=== PATIENT | male | born 1965 | race Asian ===

== ENCOUNTER 2017-12-22 17:38 | Emergency (ER) | payer SELFPAY ==
[2017-12-22] MEDS ORDERED: OXYMETAZOLINE HCL 0.05% NASAL SPRAY 15 ML BOTTLE NASL ONE (18:11)
--- NOTE | 2017-12-22 18:13 | ER Document Report ---
ED Medical Screen (RME) - General Chief Complaint: Nose Bleed Stated Complaint: NOSE BLEED Time Seen by Provider: 12/22/17 18:08 Notes: 52-year-old male patient no past medical history on no medications with the right nostril nosebleed started yesterday is been intermittent and is ongoing at this time. I have greeted and performed a rapid initial assessment of this patient. A comprehensive ED assessment and evaluation of the patient, analysis of test results and completion of the medical decision making process will be conducted by additional ED providers. TRAVEL OUTSIDE OF THE [place] IN LAST 30 DAYS: No - Related Data Allergies/Adverse Reactions: No Known Allergies Allergy (Verified 12/22/17 17:41) Past Medical History - Social History Chew tobacco use (# tins/day): No Frequency of alcohol use: 3-4 times a week Drug Abuse: None - Past Medical History Cardiac Medical History: Denies: Hx Coronary Artery Disease, Hx Heart Attack, Hx Hypertension Pulmonary Medical History: Denies: Hx Asthma, Hx Bronchitis, Hx Pneumonia Neurological Medical History: Denies: Hx Cerebrovascular Accident, Hx Seizures Renal/ Medical History: Denies: Hx Peritoneal Dialysis Musculoskeltal Medical History: Denies Hx Arthritis - Immunizations Hx Diphtheria, Pertussis, Tetanus Vaccination: No Physical Exam - Vital signs Vitals: Temp Pulse Resp BP Pulse Ox 97.7 F 80 18 170/84 H 99 12/22/17 17:45 12/22/17 17:45 12/22/17 17:45 12/22/17 17:45 12/22/17 17:45 Course - Vital Signs Vital signs: Temp Pulse Resp BP Pulse Ox 97.7 F 80 18 170/84 H 99 12/22/17 17:45 12/22/17 17:45 12/22/17 17:45 12/22/17 17:45 12/22/17 17:45
--- NOTE | 2017-12-22 18:36 | ER Document Report ---
ED General - General Chief Complaint: Nose Bleed Stated Complaint: NOSE BLEED Time Seen by Provider: 12/22/17 18:08 Notes: Patient is a 52-year-old male without past medical history who presents with bleeding from his right nostril. Patient reports that it was intermittent since last night it became constant several hours ago. He states that he has been unable to get the bleeding to stop despite applying direct pressure to the area. Nothing worsens the bleeding. He is uncertain of what triggered this bleed. He has no history of nosebleeds in the past. No history of coagulopathy , use of anticoagulants, heavy alcohol use, or history of liver cirrhosis. He denies any trauma to the nose. He has not seen his primary doctor regarding today's concerns. He states he otherwise feels completely fine denies any lightheadedness, shortness of breath, or syncope. TRAVEL OUTSIDE OF THE [place] IN LAST 30 DAYS: No - Related Data Allergies/Adverse Reactions: No Known Allergies Allergy (Verified 12/22/17 17:41) Past Medical History - General Information source: Patient - Social History Smoking Status: Current Every Day Smoker Chew tobacco use (# tins/day): No Frequency of alcohol use: 3-4 times a week Drug Abuse: None Lives with: Spouse/Significant other Family History: Reviewed & Not Pertinent Patient has suicidal ideation: No Patient has homicidal ideation: No - Past Medical History Cardiac Medical History: Denies: Hx Coronary Artery Disease, Hx Heart Attack, Hx Hypertension Pulmonary Medical History: Denies: Hx Asthma, Hx Bronchitis, Hx Pneumonia Neurological Medical History: Denies: Hx Cerebrovascular Accident, Hx Seizures Renal/ Medical History: Denies: Hx Peritoneal Dialysis Musculoskeltal Medical History: Denies Hx Arthritis - Immunizations Hx Diphtheria, Pertussis, Tetanus Vaccination: No Review of Systems - Review of Systems Notes: Constitutional: Negative for fever. HENT: Positive for nosebleed Eyes: Negative for visual changes. Cardiovascular: Negative for chest pain. Respiratory: Negative for shortness of breath. Gastrointestinal: Negative for abdominal pain, vomiting or diarrhea. Genitourinary: Negative for dysuria. Musculoskeletal: Negative for back pain. Skin: Negative for rash. Neurological: Negative for headaches, weakness or numbness. 10 point ROS negative except as marked above and in HPI. Physical Exam - Vital signs Vitals: Temp Pulse Resp BP Pulse Ox 97.7 F 80 18 170/84 H 99 12/22/17 17:45 12/22/17 17:45 12/22/17 17:45 12/22/17 17:45 12/22/17 17:45 Interpretation: Hypertensive Notes: PHYSICAL EXAMINATION: GENERAL: Appears uncomfortable but in no distress. HEAD: Atraumatic, normocephalic. EYES: Pupils equal round and reactive to light, extraocular movements intact, sclera anicteric, conjunctiva are normal. ENT: Slow trickle of blood from the right nostril. I am unable to visualize location of where the bleeding is coming from on examination of the inside of the nostril. NECK: Normal range of motion, supple without lymphadenopathy LUNGS: Breath sounds clear to auscultation bilaterally and equal. No wheezes rales or rhonchi. HEART: Regular rate and rhythm without murmurs ABDOMEN: Soft, nontender, normoactive bowel sounds. No guarding, no rebound. No masses appreciated. EXTREMITIES: Normal range of motion, no pitting or edema. No cyanosis. NEUROLOGICAL: No focal neurological deficits. Moves all extremities spontaneously and on command. PSYCH: Normal mood, normal affect. SKIN: Warm, Dry, normal turgor, no rashes or lesions noted. Course - Re-evaluation Re-evalutation: 12/22/17 18:34 Patient presents with 2 hours of bleeding from the right nostril that have been ongoing intermittently since last evening. Patient was given oxymetazoline and direct pressure was applied with termination of the bleeding after approximately 15 minutes. He does not take any form of anticoagulation. No history of coagulopathies. His blood pressure is elevated at time of arrival and he has no history of hypertension although he admits to significant anxiety about this presentation today. The remainder of his vitals are within acceptable limits. Will monitor and ensure that the bleeding remains terminated and plan for discharge home thereafter. No indication for emergent laboratories at this time as patient reports that the bleeding was a slow trickle and does not appear to have any signs or symptoms to suggest a clinically significant anemia that would warrant blood transfusion. 12/22/17 20:47 Patient is continued to have intermittent periods of a very slow trickle of blood despite multiple uses of oxymetazoline and direct pressure. I therefore placed a 4 cm Murocel packing into the nostril which has now terminated the bleeding. Will monitor. 12/22/17 21:53 Patient has not had any recurrence of bleeding for over 1 hour after placement of the Murocel packing. At this time will discharge with return precautions and follow-up recommendations. Verbal discharge instructions given a the bedside and opportunity for questions given. Medication warnings reviewed. Patient is in agreement with this plan and has verbalized understanding of return precautions and the need for primary care follow-up in the next 24-72 hours. - Vital Signs Vital signs: Temp Pulse Resp BP Pulse Ox 98.5 F 72 16 164/85 H 97 12/22/17 22:31 12/22/17 22:31 12/22/17 22:31 12/22/17 22:31 12/22/17 22:31 Procedures - Nosebleed Procedure Right Location: Anterior Supplies used: Packing Notes: 4 cm Murocel packing inserted into the right nostril and injected with normal saline. The patient has had hemostatic control Discharge - Discharge Clinical Impression: Epistaxis Condition: Good Disposition: HOME, SELF-CARE Additional Instructions: You were seen today for a nosebleed. If this restarts please return to the emergency department as you had packing placed. Please also return if you pass out, have significant pain of the nose or face, or any other symptoms that are concerning to you. Please follow-up with ENT regarding today's visit. Referrals: RAGHU SCHWARZ MD [ACTIVE STAFF] - Follow up as needed
[2017-12-22 22:32] VITALS: BP 164/85
== END 2017-12-22 22:32 | disposition home or self-care (01) ==
LOC: ER 17:38
DX: R04.0 Epistaxis (principal); F17.200 Nicotine dependence, unspecified, uncomplicated; F41.9 Anxiety disorder, unspecified
CPT/HCPCS: 99283; 30901; J3490